=== PATIENT | female | born 1985 | race Caucasian/White ===

== ENCOUNTER 2017-01-29 19:44 | Emergency (ER) | payer BC ==
[~2017-01-29] VITALS: Ht 157.5 cm; Wt 47.6 kg
[2017-01-29] MEDS ORDERED: NKM (20:02)
[2017-01-29] MEDS ORDERED: AMOXICILLIN500 MG ORAL (20:36)
[2017-01-29 20:50] VITALS: BP 135/87
--- NOTE | 2017-01-29 22:22 | Emergency Room Report ---
History of Present Illness General Chief Complaint: General Complaint Source: Patient Present Illness HPI The patient is a 31-year-old female presenting with left ear and facial pain which began one hour prior to arrival. Patient states that she was laying onto the left side of her face and felt pain and swelling. The patient denies any pain at this time. Patient denies any other symptoms including N, V, F, chills , change in hearing, tooth pain, dyspnea, neck pain/stiffness, [place] Allergies: Coded Allergies: No Known Allergies (Unverified , 01/29/17) Patient History Past Medical History: see triage record Pertinent Family History: none Last Menstrual Period: January Reviewed Nursing Documentation: PMH: Agreed, PSxH: Agreed Nursing Documentation-PMH Past Medical History: No Stated History Review of Systems All Other Systems: negative except mentioned in HPI Physical Exam Vital Signs Date Time Temp Pulse Resp B/P Pulse Ox O2 Delivery O2 Flow Rate FiO2 01/29/17 19:55 98.6 90 16 135/87 100 Room Air Sp02 EP Interpretation: reviewed, normal General Appearance: no apparent distress, alert, GCS 15, non-toxic Head: normocephalic, atraumatic Eyes: bilateral eye PERRL, bilateral eye normal inspection ENT: hearing grossly normal, normal pharynx, no angioedema, normal voice, other - L ear TM erythematous Neck: full range of motion, supple/symm/no masses Respiratory: chest non-tender, lungs clear, normal breath sounds, no wheezing, speaking full sentences Cardiovascular #1: regular rate, rhythm, no edema Musculoskeletal: back normal, gait/station normal, normal range of motion, non- tender Neurologic: alert, oriented x3, responsive, motor strength/tone normal, sensory intact, speech normal Psychiatric: judgement/insight normal, memory normal, mood/affect normal, no suicidal/homicidal ideation Skin: normal color, no rash, warm/dry, well hydrated Lymphatic: no adenopathy Medical Decision Making PA Attestation Dr. Mckenzie is my supervising physician. Patient management was discussed with my supervising physician Diagnostic Impression: Primary Impression: Otitis media of left ear ER Course The patient is a 31-year-old female presenting with left ear and facial pain which began one hour prior to arrival Physical exam: Vitals within normal limits. No apparent distress HEENT exam: There is L sided tympanic membrane erythema and bulging. External auditory canal unremarkable. No tenderness to palpation over tragus. No nasal discharge. No tonsillar edema or erythema. No exudate Lungs are clear to auscultation bilaterally The patient will be discharged home with a prescription for amoxicillin and will followup with PMD. ER precautions are given Last Vital Signs Date Time Temp Pulse Resp B/P Pulse Ox O2 Delivery O2 Flow Rate FiO2 01/29/17 20:50 98.6 82 16 135/87 100 Room Air Status: improved Disposition: HOME, SELF-CARE Condition: Improved Scripts Amoxicillin* (AMOXIL*) 500 Mg Capsule 500 MG ORAL Q12HR, #20 CAP Prov: MARYANA BUTTS 01/29/17 Referrals: NOT CHOSEN IPA/MD,REFERRING (PCP) Patient Instructions: Otitis Media, Adult Additional Instructions: I discussed my findings with the patient. All questions and concerns have been answered. Treatment and medication compliance have been addressed. I advised the patient that they need to follow up with PMD in 3-5 days. Return to ED if symptoms worsen, new symptoms arise, or if needed for any reason. Patient verbalized understanding of discharge instructions. MARYANA BUTTS Jan 29, 2017 22:22
== END 2017-01-29 20:50 | disposition home or self-care (01) ==
LOC: EMR 20:31
DX: H66.92 Otitis media, unspecified, left ear (principal)
CPT/HCPCS: 99283